=== PATIENT | male | born 1995 | race Hispanic/Latino ===

== ENCOUNTER → 2023-08-24 13:48 | Outpatient (REF) | payer OTHER, SELFPAY | LOC: REG 13:48 | PROVIDERS: ATTENDING PHYSICIAN Student in an Organized Health Care Education/Training Program | DX: M54.41 Lumbago with sciatica, right side (principal) | CPT/HCPCS: 72100; 73502 ==

== ENCOUNTER → 2023-10-02 11:03 | Outpatient (REF) | payer OTHER, SELFPAY | LOC: HWRCS 11:03 | PROVIDERS: ATTENDING PHYSICIAN Student in an Organized Health Care Education/Training Program | DX: R01.1 Cardiac murmur, unspecified (principal) | CPT/HCPCS: 93306 ==